=== PATIENT | male | born 1950 | race Caucasian/White ===

== ENCOUNTER 2018-07-11 12:28 | Emergency (ER) | payer MEDICARE, OTHER ==
[2018-07-11 13:25] LABS: BASO % 0.2 % (0.0-1.0); EOS % 0.1 % (0.0-3.0); HEMOGLOBIN 12.3 g/dl (13.5-17.5); IMMATURE GRANULOCYTE % 0.3 % (0-3.0); LYMPH # 0.4 10^3/uL (1.5-4.5); LYMPH % 4.6 % (24.0-44.0); MEAN CORPUSCULAR HEMOGLOBIN 29.8 pg (27.0-33.0); MEAN CORPUSCULAR HGB CONC 33.2 g/dl (32.0-36.5); MEAN CORPUSCULAR VOLUME 89.6 fl (80.0-96.0); MONO # 0.6 10^3/uL (0.0-0.8); MONO % 6.7 % (0.0-5.0); NEUTROPHILS # 8.2 10^3/uL (1.8-7.7); NEUTROPHILS % 88.1 % (36.0-66.0); PLATELET COUNT, AUTOMATED 194 10^3/uL (150-450); RED BLOOD COUNT 4.13 10^6/uL (4.30-6.10); RED CELL DISTRIBUTION WIDTH 13.8 % (11.5-14.5); WHITE BLOOD COUNT 9.3 10^3/uL (4.0-10.0)
[2018-07-11] MEDS: NS 1,000 ML IV (13:41)
[2018-07-11] MEDS: ACETAMINOPHEN 325 MG TAB PO (13:41)
[2018-07-11 14:00] LABS: ANION GAP 10 MEQ/L (8-16); BLOOD UREA NITROGEN 18 MG/DL (7-18); CALCIUM LEVEL 8.4 MG/DL (8.8-10.2); CARBON DIOXIDE LEVEL 28 MEQ/L (21-32); CHLORIDE LEVEL 104 MEQ/L (98-107); CREATININE FOR GFR 1.13 MG/DL (0.70-1.30); GLOMERULAR FILTRATION RATE > 60.0 (>49); GLUCOSE, FASTING 147 MG/DL (70-100); POTASSIUM SERUM 3.7 MEQ/L (3.5-5.1); SODIUM LEVEL 142 MEQ/L (136-145)
[2018-07-11 14:23] LABS: KETONE, URINE AUTO RFX NEGATIVE (NEGATIVE); MUCUS, URINE RFX SMALL (NEGATIVE); RBC, URINE AUTO RFX 6 /HPF (0-3); SPECIFIC GRAVITY UR AUTO RFX 1.019 (1.002-1.035); SQUAM EPITHELIAL CELL UR AURFX 2 /HPF (0-6)
[2018-07-11 14:25] LABS: LEUKOCYTE ESTERASE UR AUTO RFX 2+ (NEGATIVE); NITRITE, URINE AUTO RFX POSITIVE (NEGATIVE); WBC, URINE AUTO RFX 72 /HPF (0-3)
[2018-07-11] MEDS: cefTRIAXone SOD 1 GM in D5W MINI-BAG PLUS 50 ML IV (14:40)
[2018-07-11] MEDS: IBUPROFEN 600 MG TAB PO (15:03)
== END 2018-07-11 16:17 | disposition home or self-care (01) ==
LOC: M ED 12:28
DX: N39.0 Urinary tract infection, site not specified (principal); I10 Essential (primary) hypertension; E78.5 Hyperlipidemia, unspecified; Z79.82 Long term (current) use of aspirin; Z79.899 Other long term (current) drug therapy
CPT/HCPCS: J0696

== ENCOUNTER → 2018-10-01 | Outpatient (REF) | payer MEDICARE, OTHER ==
[~2018-10-01] MED LIST: ASPI81TA85 PO; CHLO125TA; CIPR250T3 PO; GLUC500C98 PO; LOSA-4; METF500T13; SIMV20TA2; ZYLO300T6
== END ==
LOC: M LAB REF 16:42
PROVIDERS: ATTEND Physician Assistant
DX: R35.0 Frequency of micturition (principal)

== ENCOUNTER → 2018-11-20 | Outpatient (CLI) | payer MEDICARE, OTHER ==
[~2018-11-20] MED LIST changes: -LOSA-4; +LOSA100T50
--- NOTE | 2018-11-20 15:29 | ECGEPIP ---
Stationary ECG Study [facility] Test Date: 2018-11-20 Pat Name: ELAINE CARVAJAL Department: Room: - Gender: M Binding Dyer: : 1950 Requested By: Robel Valdez Order Number: [id number] Reading MD: Kamila Berger Measurements Intervals Elora Rate: 84 P: 65 HI: 219 QRS: 34 QRSD: 94 T: 52 QT: 349 QTc: 414 Interpretive Statements SINUS RHYTHM WITH FIRST DEGREE AV BLOCK NONSPECIFIC T-WAVE ABNORMALITY no prior Electronically Signed On 11-20-2018 15:29:00 EST by Kamila Berger
[2018-11-20 15:42] LABS: CALCIUM LEVEL 8.9 MG/DL (8.8-10.2); CREATININE FOR GFR 1.3 MG/DL (0.70-1.30); GLOMERULAR FILTRATION RATE 58.8 (>49); POTASSIUM SERUM 3.7 MEQ/L (3.5-5.1)
--- NOTE | 2018-11-20 15:58 | REP ---
PA and lateral chest: Comparison is 08/15/2008. The lung krause are clear. The cardiac size is normal. The wood, mediastinum, and skeletal structures are unremarkable. There is a cervical spine stabilization plate, not present previously. The Impression: Negative PA and lateral chest. There is no interval change except for interval placement of a cervical spine stabilization plate. Electronically Signed by Toro Ayon MD 11/20/2018 03:50 P
== END ==
LOC: M LAB 14:31
PROVIDERS: ATTEND Orthopaedic Surgery
DX: Z01.818 Encounter for other preprocedural examination (principal); M48.02 Spinal stenosis, cervical region; E11.9 Type 2 diabetes mellitus without complications

== ENCOUNTER → 2018-12-11 | Outpatient (CLI) | payer MEDICARE, OTHER ==
[~2018-12-11] MED LIST changes: -CHLO125TA; +CHLO125TA PO; +GABA-845 PO; +GLIM2TAB PO; -LOSA100T50; +LOSA100T50 PO; -SIMV20TA2; +SIMV20TA2 PO; -ZYLO300T6; +ZYLO300T6 PO
--- NOTE | 2018-12-15 15:13 | SLEEPCENT ---
DATE OF PROCEDURE: 12/11/2018 ORDERING PROVIDER: Dr. Gerald Denise. INTERPRETATION: Nocturnal polysomnography was performed for evaluation of sleep physiology in this patient with a history of excessive somnolence and nonrestorative sleep. 8 hours and 2 minutes of data were reviewed. There were 387 minutes of sleep identified. Sleep latency was prolonged at 69.5 minutes. REM latency was short at 60 minutes. Sleep architecture was good with four REM cycles. Overall sleep efficiency 81%. The patient's electrocardiogram showed a sinus rhythm with an average heart rate of 63 beats per minute. EEG showed normal waveforms for awake and sleep. There were 115 respiratory events identified of 10 seconds in duration or greater for an apnea-hypopnea index of 17.8. The events were primarily obstructive not exclusive to sleep stage nor body posture. Arousals from respiratory events occurred 4.7 times per hour and oxygen desaturations were seen in the 80s. There was minimal limb activity and remaining measures of sleep physiology were normal. IMPRESSION: Obstructive sleep apnea syndrome (G47.33). Apnea-hypopnea 17.8. RECOMMENDATION: The patient should be encouraged to return to the sleep disorder center for pressure therapy. In the interim alcohol and sedative avoidance should be practiced and caution exercised during the operation of motor vehicles.
== END ==
LOC: M SLEEP 19:42
PROVIDERS: ATTEND Nurse Practitioner Family
DX: G47.33 Obstructive sleep apnea (adult) (pediatric) (principal)

== ENCOUNTER 2018-12-14 07:30 | Inpatient (IN) | payer MEDICARE, OTHER ==
--- NOTE | 2018-12-04 15:12 | HPE ---
DATE OF ANTICIPATED ADMISSION: 12/22/2018 Mr. Hernandez is a pleasant 67-year-old male with continuing cervicalgia and symptomatic cervical stenosis with prior history of anterior cervical decompression fusion. He has developed adjacent segment syndrome and, therefore, consented to proceed with posterior cervical decompression fusion per Dr. Robel Rivas. ALLERGIES: None known to drugs. MEDICATIONS: - losartan 100 mg - Bactroban 2% ointment - nitrofurantoin macrocrystal monohydrate (Macrobid 100 mg capsule) - simvastatin, Zocor 20 mg - glimepiride 1 mg tablet - gabapentin 300 mg one capsule by mouth two times a day - chlorthalidone 25 mg tablet - allopurinol MEDICAL PROBLEM LIST INCLUDES: Cervicalgia. Cervical stenosis with development of adjacent segment syndrome. Gout. Diabetes mellitus. Hypercholesteremia. PAST SURGICAL HISTORY: Includes; Anterior cervical decompression fusion. Laminectomy. Appendectomy. FAMILY HISTORY: Positive for cancer, heart disease, arthritis, hypercholesteremia, diabetes. SOCIAL HISTORY: He has never smoked. He rarely consumes alcohol. REVIEW OF SYSTEMS: Denies chest pain, shortness of breath, dyspnea on exertion, fever, chills, malaise, upper respiratory or urinary tract symptoms. PHYSICAL EXAMINATION: Blood pressure 122/76. Pulse 67. Temperature 98.7. Height 74. Weight 285. Body mass index (BMI) 36.6. Respirations 16. He is a pleasant, well-developed, well-nourished, obese male in no acute distress. Alert and oriented times three. Mood and affect are appropriate. He ambulates, slow steady with cane in hand in a forward flexed posture about the cervical spine. Normocephalic. Neck: Supple. Negative jugular venous distention (JVD) or bruits. Chest: Regular rate and rhythm. Lungs: Clear to auscultation. Bowel sounds times two, soft, nontender. Upper extremities are supple, soft, nontender, neurovascularly intact with no signs of infection or compartment syndrome. Neck range of motion is with stiffness, discomfort, in a forward flexed posture. Labs, reviewed as acquired on 11/20/2018. Blood type O positive, antibody (AB) screen negative. Glucose fasting elevated at 132, BUN 24, anion gap 7. Additional labs through Dr. Chung's office showed glucose serum 138, his BUN was actually normalized at 18, HDL low, hemoglobin A1c 6.5, vitamin D 221.4. Uric acid was within normal limits. EKG, service date 11/20/2018; sinus rhythm with first-degree AV block read by Dr. Robles. Chest x-ray, service date 11/20/2018, [facility], shows negative PA and lateral chest. No interval change, except for interval placement of cervical spine stabilization plate, as read by Dr. Ayon. 1. Symptomatic cervical stenosis with adjacent segment syndrome. 2. Patient consented for a posterior cervical decompression fusion. 3. Medical optimization per Dr. Chung. 4. Patient did complete second opinion with Dr. Almonte, who concurred with the above recommendations. 5. Sequential compression devices (SCDs) and thromboembolism deterrents (TEDs) in operating room (OR). 6. Postoperative [place] J collar. 7. Consent was updated today. 8. Patient is concerned about postoperative gouty flare-up, which we will keep a cautious eye on. MTDD
[~2018-12-14] VITALS: Ht 188 cm; Wt 132.0 kg
[2018-12-25] MEDS ORDERED: PROPOFOL 200 MG/20 ML VIAL As Ordered ONE ×3 (11:04→14:55)
[2018-12-25] MEDS ORDERED: LIDOCAINE 2% INJ 100 MG/5 ML SDV (FOR ANES.) As Ordered ONE (11:05)
[2018-12-25] MEDS ORDERED: ONDANSETRON 4MG/2ML VIAL (J2405) As Ordered ONE ×2 (11:07→20:18)
[2018-12-25] MEDS ORDERED: dexameTHASONE 4 MG/ML 1ML VIAL (J1100) As Ordered ONE (11:07)
[2018-12-25] MEDS ORDERED: fentaNYL 100 MCG/2 ML INJECTION (J3010) As Ordered ONE ×2 (11:09→20:17)
[2018-12-25] MEDS ORDERED: MIDAZOLAM INJ 2 MG/2 ML VIAL (J2250) As Ordered ONE (11:09)
[2018-12-25] MEDS ORDERED: REMIFENTANIL 1MG 3ML VIAL As Ordered ONE ×3 (11:10→18:10)
[2018-12-25] MEDS ORDERED: LIDOCAINE W/EPINEPHRINE 1% 20ML VIAL As Ordered ONE (12:37)
[2018-12-25] MEDS ORDERED: THROMBIN SOLN 20,000 UNITS KIT As Ordered ONE (12:37)
[2018-12-25] MEDS ORDERED: BUPIVACAINE/EPIN 0.25% 30 ML VIAL As Ordered ONE (12:37)
[2018-12-25] MEDS ORDERED: BACITRACIN PWD 50,000 UNITS VIAL As Ordered ONE (12:38)
[2018-12-25] MEDS ORDERED: methylPREDNISolone 500 MG VIAL (J2930) As Ordered ONE (12:38)
[2018-12-25] MEDS ORDERED: MUPI2OI (12:44)
[2018-12-25] MEDS ORDERED: D5W/LR 1,000 ML IV SCH (13:00)
[2018-12-25] MEDS ORDERED: methylPREDNISolone INJ 125 MG/2 ML VIAL (J2930) IV ONE (13:00)
[2018-12-25] MEDS ORDERED: PERCOCET 5MG/325MG TAB PO ONE (13:00)
[2018-12-25] MEDS ORDERED: GABAPENTIN 300 MG CAP PO ONE (13:00)
[2018-12-25] MEDS ORDERED: ceFAZolin 2 GM/D5W 50 ML IV BAG (J0690 PER 500MG) As Ordered ONE ×2 (13:27→16:53)
[2018-12-25] MEDS ORDERED: KETAMINE HCL 200 MG/20 ML VIAL As Ordered ONE (14:28)
[2018-12-25] MEDS ORDERED: PROPOFOL 1,000 MG/100 ML VIAL As Ordered ONE ×2 (14:56→14:59)
[2018-12-25] MEDS ORDERED: EPINEPHrine INJ 1 MG/ML 1ML AMP As Ordered ONE (16:38)
[2018-12-25] MEDS ORDERED: TRANEXAMIC ACID 100 MG/ML 10ML VIAL As Ordered ONE (16:38)
[2018-12-25] MEDS ORDERED: ROCURONIUM BROMIDE 50 MG/5 ML VIAL As Ordered ONE (16:44)
[2018-12-25] MEDS ORDERED: VANCOMYCIN HCL 500 MG/10 ML VIAL (J3370) As Ordered ONE (18:45)
[2018-12-25] MEDS ORDERED: BUPIVACAINE HCL 0.5% 10 ML VIAL As Ordered ONE (19:03)
[2018-12-25] MEDS ORDERED: BUPIVACAINE LIPOSOME/PF 1.3% 20ML VIAL (13.3MG/ML)(EXPAREL)(C9290 PER1MG) As Ordered ONE (19:03)
[2018-12-25] MEDS ORDERED: HYDROmorphone HCL 2 MG/ML 1ML VIAL (J1170) As Ordered ONE (19:23)
[2018-12-25] MEDS ORDERED: SUGAMMADEX SODIUM 500 MG/5 ML VIAL (BRIDION) As Ordered ONE (19:27)
[2018-12-25] MEDS ORDERED: LR 1,000 ML IV SCH (20:30)
[2018-12-25] MEDS ORDERED: MORPHINE 10 MG/ML 1ML VIAL (J2270) IV PRN (20:30)
[2018-12-25] MEDS ORDERED: PERCOCET 5MG/325MG TAB PO PRN ×2 (20:30)
[2018-12-25] MEDS ORDERED: ONDANSETRON 4MG/2ML VIAL (J2405) IV PRN (20:30)
[2018-12-25] MEDS ORDERED: fentaNYL 100 MCG/2 ML INJECTION (J3010) IV PRN (20:30)
[2018-12-25] MEDS ORDERED: CYCLOBENZAPRINE 10 MG TAB PO PRN (20:30)
[2018-12-25] MEDS ORDERED: HYDROMORPHONE HCL 0.5 MG/ 0.5 ML SYRINGE (J1170 PER 1) IV PRN (20:45)
[2018-12-25] MEDS ORDERED: ACETAMINOPHEN TAB 650MG DOSE (2X325MG) PO PRN (20:45)
[2018-12-25] MEDS: HumaLOG INSULIN (NovoLOG) PER UNIT SC SCH (21:00)
[2018-12-25 22:45] VITALS: BP 136/74
--- NOTE | 2018-12-25 23:07 | REP ---
PORTABLE INTRAOPERATIVE LATERAL VIEWS OF THE CERVICAL SPINE: Four intraoperative views of cervical spine performed in the lateral projection. The first image shows down to the C4-5 disc level with an anterior metallic plate and screw at the C4 level. The second image shows a metallic probe posteriorly which appears to project in the region of the posterior margin of the C5-6 disc level. The third image shows a metallic probe posteriorly with its tip at the C3-4 disc level. The fourth image shows a new metallic whitney and screws extending into the facets of C3 through C6. C2 through C5 vertebral bodies are well aligned. Electronically Signed by Toro Jimenez MD 12/26/2018 06:48 P
[2018-12-25 23:15] VITALS: BP 150/75
[2018-12-25] MEDS: LOSARTAN 50 MG TAB PO SCH (23:46)
[2018-12-25] MEDS: SIMVASTATIN 20 MG TAB PO SCH (23:46)
[2018-12-25] MEDS: GABAPENTIN 300 MG CAP PO SCH (23:46)
[2018-12-25] MEDS: D5W/LR 1,000 ML IV SCH (23:56)
[2018-12-26] VITALS (11 sets, daily range): BP systolic 119–131; BP diastolic 55–68; O2SAT 94
[2018-12-26] MEDS: ceFAZolin SOD 1 GM in D5W MINI-BAG PLUS 50 ML IV SCH ×2 (01:10→06:59)
[2018-12-26] MEDS: D5W/LR 1,000 ML IV SCH ×2 (06:59→15:29)
[2018-12-26] MEDS: GLIMEPIRIDE 1 MG TABLET PO SCH (07:52)
[2018-12-26] MEDS: HumaLOG INSULIN (NovoLOG) PER UNIT SC SCH ×4 (07:53→20:13)
[2018-12-26] MEDS: GABAPENTIN 300 MG CAP PO SCH ×2 (09:51→20:22)
[2018-12-26] MEDS: CHLORTHALIDONE 25 MG TAB PO SCH (09:51)
[2018-12-26] MEDS: MOM 30ML SUSPENSION UDC PO SCH (09:52)
[2018-12-26] MEDS: ALLOPURINOL 300 MG TAB PO SCH (09:52)
[2018-12-26] MEDS: MIRALAX *UNIT DOSE* 17GM PACKET PO SCH (09:53)
[2018-12-26] MEDS: METAMUCIL (PSYLLIUM) PACKET PO SCH (09:53)
[2018-12-26] MEDS: PERCOCET 5MG/325MG TAB PO PRN (19:04)
[2018-12-26] MEDS: SIMVASTATIN 20 MG TAB PO SCH (20:22)
[2018-12-26] MEDS: LOSARTAN 50 MG TAB PO SCH (20:22)
[2018-12-27] MEDS: D5W/LR 1,000 ML IV SCH (02:12)
[2018-12-27 06:00] VITALS: BP 132/75
[2018-12-27] MEDS: MOM 30ML SUSPENSION UDC PO SCH (08:22)
[2018-12-27] MEDS: GLIMEPIRIDE 1 MG TABLET PO SCH (08:23)
[2018-12-27] MEDS: MIRALAX *UNIT DOSE* 17GM PACKET PO SCH (08:23)
[2018-12-27] MEDS: METAMUCIL (PSYLLIUM) PACKET PO SCH (08:23)
[2018-12-27] MEDS: GABAPENTIN 300 MG CAP PO SCH (08:23)
[2018-12-27] MEDS: CHLORTHALIDONE 25 MG TAB PO SCH (08:24)
[2018-12-27] MEDS: ALLOPURINOL 300 MG TAB PO SCH (08:24)
[2018-12-27] MEDS: HumaLOG INSULIN (NovoLOG) PER UNIT SC SCH (08:26)
[2018-12-27] MEDS ORDERED: PERC5TAB12 PO (08:27)
[2018-12-27] MEDS: PERCOCET 5MG/325MG TAB PO PRN (11:31)
[2018-12-27] MEDS ORDERED: PERCOCET 5MG/325MG TAB PO ONE (12:00)
--- NOTE | 2018-12-28 14:59 | RO ---
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 Patient has a history of previous anterior cervical fusion surgery a number of years ago. PROCEDURE PERFORMED: A C3 bilateral laminectomy for decompression of the spinal cord/thecal sac and nerve roots. A C4 laminectomy additional level. C5 laminectomy additional level. C3-4 posterior cervical arthrodesis, C4-5 posterior cervical arthrodesis, C5-6 posterior cervical arthrodesis, C3, 4, 5, 6 posterior segmental instrumentation, harvest and placement of local autograft for spine surgery, application and removal of Burrows tongs and appropriate positioning. Also neuromonitoring was implemented throughout the course of this procedure. SURGEON: Robel Rivas MD PSYCHIATRIC SOCIAL WORKER: HILLARY Brink ANESTHESIA: General. ESTIMATED BLOOD LOSS: 200 mL replaced with crystalloid. COMPLICATIONS: No complications. INDICATIONS: Patient with progressive gait disorder, cervical myelopathy with symptoms affecting the upper and lower extremities. MRI evidence of severe cervical spinal stenosis at C3-4 and moderate severe cervical spinal stenosis C4-5, previous anterior cervical surgery. Consent reviewed in detail with the patient and involved a nanci discussion of the pathology involved, the procedures proposed, alternatives including doing nothing, risks including but not limited to pain, failure, infection, bleeding, blood loss, incomplete relief of symptoms, paralysis, , need for more surgery and other issues. The patient agreed to proceed. COMPONENTS USED: Include the DePuy MOUNTAINEER system, 12 mm screws utilized at C4, C5 and C6 bilaterally, 14 mm screws utilized at C3, and a 60 mm connecting whitney bilaterally. OPERATIVE COURSE: Identified in the holding area, site and side verified. Brought to the operating room. General endotracheal anesthesia was administered, neuromonitoring was implemented. We verified neuromonitoring function prior to positioning. Next, his head was prepped with Betadine and I applied the Burrows tongs to 2.75 bars pressure. I inspected the Burrows tongs and once I was comfortable with the position of the Burrows tongs, we began positioning. I controlled the patient's cervical spine and head while operating room staff including Mr. Ibanez assisted with positioning the body. He was log-rolled to the operating table in the prone position over blanket rolls. Next, while I held the head in position, Mr. Ibanez secured the Burrows tongs to the table and then we proceeded to tape the shoulders and arms of the sides and make final adjustments to the table and the Burrows tongs for adequate positioning. Next, once this was accomplished. The patient was sterilely prepped and draped in the usual fashion. A cross-table lateral x-ray had been taken to verify good alignment after positioning and the neuromonitoring and had again been accomplished after positioning and no changes were appreciated. Next, once he was sterilely prepped and draped we began the procedure. I utilized 3.5 loupe magnification as well as a headlamp. Mr. Ibanez stood on the opposite side of the table. The incision was made in the midline posterior cervical spine, developed down the nuchal ligaments to the posterior spinous processes. He has some calcification within the nuchal ligament and that was enucleated. The dissection continued exposing the spinous process and lamina. We had begun on the patient's left side. Next, once I could place a probe under the lamina, we did drill a divot in the lamina at the C4-5 level, obtained a cross-table lateral and developed dissection superiorly through the inferior lamina of C3 and spinous process taking care here to minimize sacrifice of soft tissue/muscle. Next, once that C3 lamina was adequately exposed and the exposure ran from C3-C6, we accomplished a similar dissection on the contralateral side. Bipolar cautery utilized for hemostasis. Next, SHADOW-LINE retractors were applied. This patient's body mass index was high with a weight of 280 pounds. We utilized 65 mm blades on the SHADOW-LINE retractor. Next, once this was accomplished I removed spinous process of the C5-6, 4 and inferior 3. Using Leksell, these bones was retained for bone graft. Next, once that was accomplished, I utilized the high-speed bur to complete a laminectomy. I first began on the patient's right side at the medial border of the facette lamina junction. We turned to the contralateral side and again utilized the high-speed bur to implement a trough from C3-C6, then I was able to elevate the lamina with #1 Kerrison's cutting ligamentum flavum. Next, the lamina was removed. The thecal sac was noted to drift back significantly. No neuromonitoring changes were appreciated. Kerrison's were then utilized to decompress further into the superior lamina of 3, undercutting it and decompressing from the deep side of the C3 lamina. Similarly, superior lamina of C6 was also further decompressed. Next, once this was accomplished we inspected the wound. No active bleeding. We instilled some TXA solution as a hemostatic agent, nonetheless. We allowed that stand for approximately 1-1/2 minutes. We also irrigated thoroughly with approximately 500 mL of warm saline solution. We irrigated with bacitracin solution. Next, we also injected a total of about 50 mL of Exparel Marcaine saline solution around the posterior septal condyles, the nuchal ligament and fascial attachments subcuticular area bilaterally for perioperative pain control. Next, once this was all accomplished. retractors were removed. The wound was closed with interrupted stitch at posterior cervical fascia and nuchal ligament followed by deep dermal stitches, followed by application of the Prineo dressing. Next, once this was accomplished, Mr. Ibanez and I began the process of disassembling the Burrows tongs and moving the patient. Again, I secured the patient's head, Mr. Ibanez freed the Burrows tongs, and then we directed moving the patient back the supine position, rolling him onto the hospital bed. Here I removed the Burrows tongs. The Burrows tongs pin sites were intact with no drainage. Next, at this point anesthesia was able to extubate the patient. There was no changes in the neuromonitoring with the flip. Next, the patient was able to be extubated, moved to recovery room in good condition, was noted to move all four extremities. For further details please refer to medical record.
== END 2018-12-27 11:40 | disposition home or self-care (01) | DRG 473 ==
LOC: M OR 12-25 10:53 → M MS5PR 12-25 22:40
PROVIDERS: ADMIT Orthopaedic Surgery; ATTEND Orthopaedic Surgery
PROC: 0RB30ZZ Excision of Cervical Vertebral Disc, Open Approach (ICD-10-PCS; 2018-12-25)
PROC: 0RG10J1 Fusion of Cervical Vertebral Joint with Synthetic Substitute, Posterior Approach, Posterior Column, Open Approach (ICD-10-PCS; principal; 2018-12-25 13:00)
DX: M50.01 Cervical disc disorder with myelopathy, high cervical region (principal); M50.021 Cervical disc disorder at C4-C5 level with myelopathy; M54.2 Cervicalgia; T85.858A Stenosis due to other internal prosthetic devices, implants and grafts, initial encounter; E11.69 Type 2 diabetes mellitus with other specified complication; Z79.899 Other long term (current) drug therapy; M10.9 Gout, unspecified; E78.2 Mixed hyperlipidemia; E55.9 Vitamin D deficiency, unspecified

== ENCOUNTER → 2019-03-12 | Outpatient (REF) | payer MEDICARE, OTHER ==
[~2019-03-12] MED LIST changes: +MUPI2OI; +PERC5TAB12 PO
[2019-03-12 19:18] LABS: APPEARANCE, URINE CLEAR (CLEAR); BACTERIA, URINE AUTO NEGATIVE (NEGATIVE); BILIRUBIN, URINE AUTO NEGATIVE (NEGATIVE); BLOOD, URINE BLOOD NEGATIVE (NEGATIVE); COLOR, URINE YELLOW (YELLOW); GLUCOSE, URINE (UA) AUTO NEGATIVE (NEGATIVE); KETONE, URINE AUTO NEGATIVE (NEGATIVE); LEUKOCYTE ESTERASE, URINE AUTO NEGATIVE (NEGATIVE); MUCUS, URINE SMALL (NEGATIVE); NITRITE, URINE AUTO NEGATIVE (NEGATIVE); PROTEIN, URINE AUTO NEGATIVE (NEGATIVE); RBC, URINE AUTO 0 /HPF (0-3); SPECIFIC GRAVITY URINE AUTO 1.011 (1.002-1.035); SQUAMOUS EPITHELIAL CELL UR AU 0 /HPF (0-6); UROBILINOGEN, URINE AUTO 0.2 mg/dL (0.0-2.0); WBC, URINE AUTO 0 /HPF (0-3)
== END ==
LOC: M SMT 16:07
PROVIDERS: ATTEND Nurse Practitioner Family
DX: R35.0 Frequency of micturition (principal)

== ENCOUNTER → 2019-04-02 | Outpatient (REF) | payer MEDICARE, OTHER | LOC: M LABSMT 09:31 | PROVIDERS: ATTEND Nurse Practitioner Family | DX: R35.0 Frequency of micturition (principal); Z12.5 Encounter for screening for malignant neoplasm of prostate ==

== ENCOUNTER → 2019-04-02 | Outpatient (REF) | payer MEDICARE, OTHER ==
[2019-04-02 16:42] LABS: ALBUMIN 3.8 GM/DL (3.2-5.2); ALT/SGPT 22 U/L (12-78); BILIRUBIN,TOTAL 0.5 MG/DL (0.2-1.0); BLOOD UREA NITROGEN 20 MG/DL (7-18); CALCIUM LEVEL 8.5 MG/DL (8.8-10.2); CARBON DIOXIDE LEVEL 28 MEQ/L (21-32); CHLORIDE LEVEL 105 MEQ/L (98-107); CREATININE FOR GFR 0.99 MG/DL (0.70-1.30); GLOMERULAR FILTRATION RATE > 60.0 (>49); GLUCOSE, FASTING 138 MG/DL (70-100); POTASSIUM SERUM 3.7 MEQ/L (3.5-5.1); SODIUM LEVEL 141 MEQ/L (136-145); TOTAL PROTEIN 7.8 GM/DL (6.4-8.2); URIC ACID 6.2 MG/DL (3.5-7.2)
[2019-04-02 16:49] LABS: TOTAL 25(OH) VITAMIN D 11.4 NG/ML (30.0-100.0)
[2019-04-02 16:59] LABS: HEMOGLOBIN A1c 6.8 %
== END ==
LOC: M LABDRAWC 15:54
PROVIDERS: ATTEND Physician Assistant
DX: E11.69 Type 2 diabetes mellitus with other specified complication (principal); M10.9 Gout, unspecified; E55.9 Vitamin D deficiency, unspecified; R35.0 Frequency of micturition; Z12.5 Encounter for screening for malignant neoplasm of prostate
CPT/HCPCS: 80053; 82306; 83036; 84550; G0103

== ENCOUNTER → 2019-04-05 | Outpatient (REF) | payer MEDICARE, OTHER ==
[2019-04-05 21:13] LABS: CREATININE, URINE 74.5 MG/DL; MALB URINE SIEMENS 5.9 MG/L; MAU/CREAT RATIO 7.9 MCG/MG (0.0-30.0)
== END ==
LOC: M LAB REF 16:36
PROVIDERS: ATTEND Physician Assistant
DX: E11.69 Type 2 diabetes mellitus with other specified complication (principal); M10.9 Gout, unspecified; E55.9 Vitamin D deficiency, unspecified

== ENCOUNTER → 2019-04-05 | Outpatient (REF) | payer MEDICARE, OTHER ==
[2019-04-05 21:04] LABS: APPEARANCE, URINE HAZY (CLEAR); BACTERIA, URINE AUTO NEGATIVE (NEGATIVE); BILIRUBIN, URINE AUTO NEGATIVE (NEGATIVE); BLOOD, URINE BLOOD NEGATIVE (NEGATIVE); COLOR, URINE YELLOW (YELLOW); GLUCOSE, URINE (UA) AUTO NEGATIVE (NEGATIVE); KETONE, URINE AUTO NEGATIVE (NEGATIVE); LEUKOCYTE ESTERASE, URINE AUTO NEGATIVE (NEGATIVE); MUCUS, URINE SMALL (NEGATIVE); NITRITE, URINE AUTO NEGATIVE (NEGATIVE); PROTEIN, URINE AUTO NEGATIVE (NEGATIVE); RBC, URINE AUTO 0 /HPF (0-3); SPECIFIC GRAVITY URINE AUTO 1.011 (1.002-1.035); SQUAMOUS EPITHELIAL CELL UR AU 0 /HPF (0-6); UROBILINOGEN, URINE AUTO 0.2 mg/dL (0.0-2.0); WBC, URINE AUTO 1 /HPF (0-3)
== END ==
LOC: M SMT 16:38
PROVIDERS: ATTEND Nurse Practitioner Family
DX: R35.0 Frequency of micturition (principal); Z12.5 Encounter for screening for malignant neoplasm of prostate

== ENCOUNTER → 2020-03-07 | Outpatient (REF) | payer MEDICARE, OTHER ==
[~2020-03-07] MED LIST changes: -GLIM2TAB PO; +GLIM2TAB4 PO; -SIMV20TA2 PO; +SIMV20TA22 PO
[2020-03-07 12:41] LABS: HEMOGLOBIN A1c 6.9 %
[2020-03-07 12:49] LABS: ALT/SGPT 33 U/L (12-78); BILIRUBIN,TOTAL 0.6 MG/DL (0.2-1.0); BLOOD UREA NITROGEN 18 MG/DL (7-18); CALCIUM LEVEL 8.7 MG/DL (8.8-10.2); CARBON DIOXIDE LEVEL 29 MEQ/L (21-32); CHLORIDE LEVEL 107 MEQ/L (98-107); CHOLESTEROL LEVEL 118 MG/DL (<200); CHOLESTEROL RISK RATIO 4.214 (<5); GLOMERULAR FILTRATION RATE > 60.0 (>49); GLUCOSE, FASTING 130 MG/DL (70-100); HDL CHOLESTEROL 28 MG/DL (>40); LDL CHOLESTEROL 56 MG/DL (<100); NON-HDL-C 90 MG/DL; POTASSIUM SERUM 3.8 MEQ/L (3.5-5.1); SODIUM LEVEL 142 MEQ/L (136-145); TOTAL PROTEIN 7.5 GM/DL (6.4-8.2); TRIGLYCERIDES LEVEL 170 MG/DL (<150); URIC ACID 6.4 MG/DL (3.5-7.2)
== END ==
LOC: M LABDRAWC 11:12
PROVIDERS: ATTEND Physician Assistant
DX: E11.69 Type 2 diabetes mellitus with other specified complication (principal); E78.2 Mixed hyperlipidemia; M10.9 Gout, unspecified; E55.9 Vitamin D deficiency, unspecified

== ENCOUNTER 2020-05-15 07:00 | Inpatient (IN) | payer MEDICARE, OTHER ==
[~2020-05-15 07:00] MED LIST changes: -ASPI81TA85 PO; +ASPI81TA86 PO; +BACITRACIN PWD 50,000 UNITS VIAL As Ordered ONE; +BUPIVACAINE HCL 0.5% 10ML VIAL As Ordered ONE; +BUPIVACAINE LIPOSOME/PF 1.3% 20ML VIAL (13.3MG/ML)(EXPAREL)(C9290 PER1MG) As Ordered ONE; +BUPIVACAINE/EPIN 0.25% 30 ML VIAL As Ordered ONE; +CelecoXIB (CeleBREX) 100 MG CAP As Ordered ONE; +CelecoXIB (CeleBREX) 100 MG CAP ONE; +GABAPENTIN 300 MG CAP As Ordered ONE; +GABAPENTIN 300 MG CAP ONE; +PERCOCET 5MG/325MG TAB As Ordered ONE; +PERCOCET 5MG/325MG TAB ONE; +THROMBIN SOLN 20,000 UNITS KIT As Ordered ONE; +ceFAZolin 2 GM/D5W 50 ML IV BAG (J0690 PER 500MG) As Ordered ONE; +ceFAZolin 2 GM/D5W 50 ML IV BAG (J0690 PER 500MG) ONE
[2020-05-15] MEDS ORDERED: MIDAZOLAM INJ 2MG/2ML VIAL (J2250 PER 1MG) As Ordered ONE (08:18)
[2020-05-15] MEDS ORDERED: ROCURONIUM BROMIDE 50 MG/5 ML VIAL As Ordered ONE (08:18)
[2020-05-15] MEDS ORDERED: METOCLOPRAMIDE INJ 10MG/2ML VIAL (J2765 PER 1) As Ordered ONE (08:18)
[2020-05-15] MEDS ORDERED: LIDOCAINE 2% 100MG/5ML SDV (FOR ANES.) As Ordered ONE (08:18)
[2020-05-15] MEDS ORDERED: SUGAMMADEX SODIUM 500 MG/5 ML VIAL (BRIDION) As Ordered ONE (08:18)
[2020-05-15] MEDS ORDERED: dexameTHASONE 4 MG/ML 1ML VIAL (J1100 PER 1MG) As Ordered ONE (08:18)
[2020-05-15] MEDS ORDERED: LIDOCAINE 5% OINT 30 GM As Ordered ONE (08:18)
[2020-05-15] MEDS ORDERED: propofoL 200 MG/20 ML VIAL As Ordered ONE (08:18)
[2020-05-15] MEDS ORDERED: ONDANSETRON 4MG/2ML VIAL As Ordered ONE (08:18)
[2020-05-15] MEDS ORDERED: fentaNYL 250 MCG/5 ML INJECTION (J3010) As Ordered ONE (08:18)
[2020-05-15] MEDS ORDERED: DESFLURANE 240 ML INHALANT As Ordered ONE ×2 (08:18→08:21)
[2020-05-15] MEDS ORDERED: LACRILUBE (AKWA TEARS) OPHTH OINT 3.5 GM As Ordered ONE (08:19)
[2020-05-15] MEDS ORDERED: PHENYLephrine HCL 500 MCG/5 ML (100MCG/ML) SYRINGE (J2370) As Ordered ONE (08:19)
[2020-05-15] MEDS ORDERED: ePHEDrine SULFATE 25 MG/5 ML(5MG/ML) SYRINGE As Ordered ONE ×2 (08:19→11:22)
[2020-05-15] MEDS ORDERED: SEVOFLURANE INHAL SOLN 250 ML BTL As Ordered ONE (08:23)
[2020-05-15] MEDS ORDERED: ceFAZolin 2 GM/D5W 50 ML IV BAG (J0690 PER 500MG) ONE (15:47)
[2020-05-15] MEDS ORDERED: MULTIVITAMINS/MINERALS THERAP 1 TAB ONE (15:47)
[2020-05-15] MEDS ORDERED: PERCOCET 5MG/325MG TAB ONE (18:27)
[2020-05-15] MEDS ORDERED: TAMSULOSIN 0.4 MG CAP ONE (20:30)
[2020-05-16] MEDS ORDERED: MULTIVITAMINS/MINERALS THERAP 1 TAB ONE (07:57)
[2020-05-16] MEDS ORDERED: HumaLOG INSULIN (NovoLOG) PER UNIT ONE (07:57)
[2020-05-16] MEDS ORDERED: GLIMEPIRIDE 2 MG TAB ONE (07:57)
[2020-05-16] MEDS ORDERED: METAMUCIL (PSYLLIUM) PACKET ONE (07:57)
[2020-05-16] MEDS ORDERED: CHLORTHALIDONE 25 MG TAB ONE (07:59)
--- NOTE | 2020-06-30 13:59 | REP ---
PORTABLE CROSS-TABLE VIEW LUMBAR SPINE HISTORY: Intraoperative imaging. Report is delayed due to a malware attack on this facility. FINDINGS: Portable cross-table lateral view demonstrates an intraoperative probe at the dorsal aspect of the spinal canal at the level of the L4-5 disk. Diffuse degenerative disk disease is noted. MTDD
--- NOTE | 2020-07-13 13:02 | RO ---
DATE OF OPERATION: 05/15/2020 PREOPERATIVE DIAGNOSIS: Lumbar spinal stenosis L4-5. POSTOPERATIVE DIAGNOSIS: Lumbar spinal stenosis L4-5. PROCEDURE(S) PERFORMED: L4 right unilateral laminectomy for decompression of the thecal sac and lateral recesses bilaterally, L5 right unilateral laminectomy additional level for decompression of the thecal sac recesses bilaterally. Modifier 22 appended as this patients body mass index is 38 and his weight is 290 pounds, which necessitated use of an alternative table (the Alcides table instead of the preferred Maykel frame), additional time for positioning, as well as approximately 100% additional operating time compared with some with a body mass index lower. SURGEON: Robel Rivas M.D. JUMPBASTING CANVAS BASTER: HILLARY Rose ANESTHESIA: General endotracheal. ESTIMATED BLOOD LOSS: Less than 100 mL replaced with crystalloid. COMPLICATIONS: None. INDICATIONS FOR PROCEDURE: Symptoms consistent with neurogenic claudication and MRI evidence of severe lumbar spinal stenosis primarily at the L4-5 level, congenital and acquired. The patient elects for operative intervention. Consent reviewed in detail, including nanci discussion of the pathology involved, the procedure with both alternatives including doing nothing and risks including, but not limited to pain, failure, incomplete relief, need for additional surgery, residual symptoms, and other issues. The patient agrees to proceed with surgery. DESCRIPTION OF PROCEDURE: Identified in the holding area, site and side verified. Confirmed consent and brought to the operating room. General endotracheal anesthesia was administered and then the patient, who also has a history of multiple cervical surgeries, was very carefully positioned on the Alcides frame for exposure of the lumbar spine for laminectomy. Once he was positioned and I and the telecom coordinator were comfortable with the patients positioning, he was then sterilely prepped and draped in the usual fashion. We began the surgical procedure. I utilized 3.5 loupe magnification at the start of the procedure and a head lamp. Glenroyjoce stood on the patients left and I stood on the patients right. The incision was based on palpation of landmarks outlined with the marking pen, infiltrated with 0.25% Marcaine with epinephrine made with a 10-blade developed down through skin and subcuticular tissues to the posterior lumbar fascia. The posterior lumbar fascia was reflected off of the spinous processes of 4 and 5. Dissection continued down to the spinal lamina. A divot was drilled in the spinal lamina and a Greene Santana was placed in the divot. A cross-table lateral x-ray was then taken to verify level. Next once the level was confirmed, exposure continued exposing the lamina of 4 and 5 and then, we utilized an 85 mm Shadow-Line retractor blade to implement retraction. Next at this stage, my loupe magnification and head lamp were removed, and the operating microscope was brought in for the remainder of the procedure. This facilitated additional participation by Mr. Tomlin in the capacity of first assist looking through the left ocular side through the right oculars. Next, I utilized the high-speed bur to implement a right unilateral laminectomy beginning at L4 superiorly through the lamina of 4, through the bare area of 4, inferiorly through the bare area of 5, and further into the L5 lamina. Ligamentum flavum was removed with pituitaries, curettes, and #2 and #3 Kerrison in the midline. Next, the right L4-5 facet was protected. We removed approximately several millimeters of the medial aspect of the facet to facilitate decompression to the lateral recess, which was accomplished using a #2 Kerrison and curettes extending from L4 through the facet complex and into the lateral recess of 5. Next once this was accomplished, we dissected over the horizon undercutting the spinous processes and removed ligamentum flavum from the contralateral recess and subarticular space using curettes, as well as #2 Kerrison. Next, the exiting and traversing nerve roots were appreciated bilaterally to be significantly decompressed. We inspected for bleeding and no active bleeding. We did not appreciate any cerebrospinal fluid (CSF) leak. We irrigated with saline solution. We did inject 20 mL approximately of Exparel solution for perioperative pain control. The retractors were removed. The posterior lumbar fascia was reapproximated with interrupted stitch and the dermis with interrupted stitch followed by a Prineo dressing. The patient was then log rolled to the hospital bed, extubated, and moved to the recovery room in good condition. For further details, please refer to the medical record. SANDI
== END 2020-05-16 10:30 | disposition home or self-care (01) | DRG 517 ==
LOC: M ED 07:00 → M MS5PR 07:25
PROVIDERS: ADMIT Orthopaedic Surgery; ATTEND Orthopaedic Surgery
PROC: 0QB00ZZ Excision of Lumbar Vertebra, Open Approach (ICD-10-PCS; principal; 2020-05-15)
DX: M48.062 Spinal stenosis, lumbar region with neurogenic claudication (principal); E11.9 Type 2 diabetes mellitus without complications; I10 Essential (primary) hypertension; M19.90 Unspecified osteoarthritis, unspecified site; Z79.899 Other long term (current) drug therapy; E78.2 Mixed hyperlipidemia; M10.9 Gout, unspecified; E55.9 Vitamin D deficiency, unspecified

== ENCOUNTER → 2020-07-12 | Outpatient (REF) | payer MEDICARE, OTHER ==
[~2020-07-12] MED LIST changes: -BACITRACIN PWD 50,000 UNITS VIAL As Ordered ONE; -BUPIVACAINE HCL 0.5% 10ML VIAL As Ordered ONE; -BUPIVACAINE LIPOSOME/PF 1.3% 20ML VIAL (13.3MG/ML)(EXPAREL)(C9290 PER1MG) As Ordered ONE; -BUPIVACAINE/EPIN 0.25% 30 ML VIAL As Ordered ONE; -CelecoXIB (CeleBREX) 100 MG CAP As Ordered ONE; -CelecoXIB (CeleBREX) 100 MG CAP ONE; -GABAPENTIN 300 MG CAP As Ordered ONE; -GABAPENTIN 300 MG CAP ONE; -PERCOCET 5MG/325MG TAB As Ordered ONE; -PERCOCET 5MG/325MG TAB ONE; -THROMBIN SOLN 20,000 UNITS KIT As Ordered ONE; -ceFAZolin 2 GM/D5W 50 ML IV BAG (J0690 PER 500MG) As Ordered ONE; -ceFAZolin 2 GM/D5W 50 ML IV BAG (J0690 PER 500MG) ONE
[2020-07-12 17:27] LABS: APPEARANCE, URINE CLOUDY (CLEAR); BACTERIA, URINE AUTO 1+ (NEGATIVE); BILIRUBIN, URINE AUTO NEGATIVE (NEGATIVE); BLOOD, URINE BLOOD NEGATIVE (NEGATIVE); COLOR, URINE YELLOW (YELLOW); GLUCOSE, URINE (UA) AUTO NEGATIVE (NEGATIVE); KETONE, URINE AUTO NEGATIVE (NEGATIVE); LEUKOCYTE ESTERASE, URINE AUTO 3+ (NEGATIVE); NITRITE, URINE AUTO NEGATIVE (NEGATIVE); PROTEIN, URINE AUTO NEGATIVE (NEGATIVE); RBC, URINE AUTO 2 /HPF (0-3); SQUAMOUS EPITHELIAL CELL UR AU 0 /HPF (0-6); UROBILINOGEN, URINE AUTO 0.2 mg/dL (0.0-2.0); WBC, URINE AUTO 115 /HPF (0-3)
== END ==
LOC: M SMT 16:53
PROVIDERS: ATTEND Nurse Practitioner Family
DX: R39.15 Urgency of urination (principal)
CPT/HCPCS: 51798; 81001; 87088; 87186; G0463

== ENCOUNTER → 2020-07-14 | Outpatient (CLI) | payer MEDICARE, OTHER ==
--- NOTE | 2020-07-19 12:24 | REP ---
SCROTAL SONOGRAPHY HISTORY: Urinary tract infection. Hydrocele. COMPARISON STUDY: 07/14/2019. FINDINGS: High resolution bilateral scrotal sonography is performed. There is no evidence of intratesticular mass lesion on either side. Right testicular dimensions are 4.8 x 2.8 x 3.7 cm. Left testis measures 5.2 x 2.3 x 3.9 cm. Doppler flow is present in both testes. Resistive indices are 0.55 on the right and 0.7 on the left. There are moderate bilateral hydroceles. There is a 2-mm hyperechoic focus in the left testis consistent with a small focal calcification. There is a 0.4 cm cyst in the left epididymis. No other abnormality. IMPRESSION: Uldoa-xb-rloigpxt bilateral hydroceles again noted. Small epididymal cyst on the left. Otherwise unremarkable. [facility]
--- NOTE | 2020-07-19 12:26 | REP ---
RENAL SONOGRAPHY HISTORY: Urinary tract infection (UTI). FINDINGS: Renal cortical echogenicity pattern is normal and renal contours are smooth bilaterally. There is no evidence of hydronephrosis, cyst, mass, or calculus on either side. Right renal dimensions are 13.7 x 6.9 x 6.1 cm. The left kidney measures 12.6 x 4.5 x 6.6 cm. IMPRESSION: Normal renal sonography. [facility]
--- NOTE | 2020-07-19 12:27 | REP ---
LIMITED, PELVIC SONOGRAPHY HISTORY: Urinary tract infection. FINDINGS: Visualized bladder lowery are smooth. No bladder mass lesion is seen. Calculated prevoid bladder volume is 256 mL. Calculated postvoid bladder volume is 55 mL (21%). IMPRESSION: Mild postvoid bladder residual. Otherwise negative bladder sonography. MTDD
== END ==
LOC: M RAD 12:01
PROVIDERS: ATTEND Nurse Practitioner Family
DX: N39.0 Urinary tract infection, site not specified (principal); N43.3 Hydrocele, unspecified; N50.3 Cyst of epididymis; N50.82 Scrotal pain

== ENCOUNTER → 2020-11-06 | Outpatient (CLI) | payer MEDICARE, OTHER ==
[~2020-11-06] MED LIST changes: +ASPI81TA26 PO; +D31000TA2 PO; +FLOM0.4C39 PO; +FLON1SPR; +VITATAB73 PO
== END ==
LOC: M LABSMTC 10:58
PROVIDERS: ATTEND Anesthesiology
DX: Z01.812 Encounter for preprocedural laboratory examination (principal); Z20.822 Contact with and (suspected) exposure to COVID-19

== ENCOUNTER 2020-11-09 10:21 | Day surgery (SDC) | payer MEDICARE, OTHER ==
[~2020-11-09] VITALS: Ht 188 cm; Wt 137.0 kg
[~2020-11-09 10:21] MED LIST changes: +LIDOCAINE 2% 100MG/5ML SDV (FOR ANES.) As Ordered ONE; +NS 1,000 ML IV ONE; +propofoL 200 MG/20 ML VIAL As Ordered ONE
[2020-11-09] MEDS ORDERED: PHENYLephrine 500MCG 5ML (100MCG/ML) SYRINGE As Ordered ONE (11:43)
[2020-11-09] MEDS ORDERED: ePHEDrine SULFATE 25 MG/5 ML(5MG/ML) SYRINGE As Ordered ONE (11:50)
--- NOTE | 2020-11-09 11:59 | ROOR ---
Patient Name: Sudeep Hernandez Procedure Date: 11/09/2020 11:21 AM Date of : 1950 Age: 69 Room: [facility] Gender: Male Note Status: Finalized Procedure: Colonoscopy Indications: High risk colon cancer surveillance: Personal history of colonic polyps Providers: Jonathan Palencia Jr, MD Referring MD: JAMIN CLAROS MD Requesting Provider: Medicines: Propofol per Anesthesia Complications: No immediate complications. Procedure: Pre-Anesthesia Assessment: - Prior to the procedure, a History and Physical was performed, and patient medications and allergies were reviewed. The patient is competent. The risks and benefits of the procedure and the sedation options and risks were discussed with the patient. All questions were answered and informed consent was obtained. Patient identification and proposed procedure were verified by the physician and the nurse in the pre-procedure area and in the procedure room. Mental Status Examination: alert and oriented. Airway Examination: normal oropharyngeal airway and neck mobility. Respiratory Examination: clear to auscultation. CV Examination: normal. ASA Grade Assessment: II - A patient with mild systemic disease. After reviewing the risks and benefits, the patient was deemed in satisfactory condition to undergo the procedure. The anesthesia plan was to use moderate sedation / analgesia (conscious sedation). Immediately prior to administration of medications, the patient was re-assessed for adequacy to receive sedatives. The heart rate, respiratory rate, oxygen saturations, blood pressure, adequacy of pulmonary ventilation, and response to care were monitored throughout the procedure. The physical status of the patient was re-assessed after the procedure. The Colonoscope was introduced through the anus and advanced to the ileocecal valve. The colonoscopy was unusually difficult due to a redundant colon, significant looping and a tortuous colon. Successful completion of the procedure was aided by using manual pressure. Findings: Three polyps were found in the sigmoid colon, transverse colon and ascending colon. The polyps were small in size. These polyps were removed with a hot snare. Resection was complete, but the polyp tissue was only partially retrieved. The sigmoid colon, descending colon, transverse colon and ascending colon were significantly redundant. The sigmoid colon, descending colon, transverse colon and ascending colon revealed significantly excessive looping. Impression: - Three small polyps in the sigmoid colon, in the transverse colon and in the ascending colon, removed with a hot snare. Complete resection. Partial retrieval. - Redundant colon. - There was significant looping of the colon. Recommendation: - Discharge patient to home (ambulatory). - Repeat colonoscopy in 5 years for surveillance. Procedure Code(s): --- Professional --- 93599, Colonoscopy, flexible; with removal of tumor(s), polyp(s), or other lesion(s) by snare technique Diagnosis Code(s): --- Professional --- Z86.010, Personal history of colonic polyps K63.5, Polyp of colon Q43.8, Other specified congenital malformations of intestine CPT copyright 2019 [employer]. All rights reserved. The codes documented in this report are preliminary and upon remote coders review may be revised to meet current compliance requirements. Jonathan Palencia MD Jonathan Palencia Jr, MD 11/09/2020 11:58:24 AM Electronically signed by Jonathan Palencia Jr, MD Number of Addenda: 0 Note Initiated On: 11/09/2020 11:21 AM Estimated Blood Loss: Estimated blood loss: none.
[2020-11-09 12:20] VITALS: BP 115/65
== END 2020-11-09 12:25 | disposition home or self-care (01) ==
LOC: M OPP 10:21
PROVIDERS: ATTEND Surgery
DX: Z12.11 Encounter for screening for malignant neoplasm of colon (principal); Z86.010 Personal history of colon polyps; Z80.0 Family history of malignant neoplasm of digestive organs; D12.6 Benign neoplasm of colon, unspecified; Q43.8 Other specified congenital malformations of intestine; I10 Essential (primary) hypertension; E78.5 Hyperlipidemia, unspecified; E11.9 Type 2 diabetes mellitus without complications; M10.9 Gout, unspecified; M19.90 Unspecified osteoarthritis, unspecified site; G47.30 Sleep apnea, unspecified; N42.9 Disorder of prostate, unspecified; Z79.82 Long term (current) use of aspirin; Z79.84 Long term (current) use of oral hypoglycemic drugs; Z79.899 Other long term (current) drug therapy
CPT/HCPCS: 45385; 88305; J2370

== ENCOUNTER → 2021-01-04 | Outpatient (REF) | payer MEDICARE, OTHER ==
[~2021-01-04] MED LIST changes: -LIDOCAINE 2% 100MG/5ML SDV (FOR ANES.) As Ordered ONE; -NS 1,000 ML IV ONE; -propofoL 200 MG/20 ML VIAL As Ordered ONE
[2021-01-04 14:08] LABS: APPEARANCE, URINE HAZY (CLEAR); BACTERIA, URINE AUTO 1+ (NEGATIVE); BILIRUBIN, URINE AUTO NEGATIVE (NEGATIVE); BLOOD, URINE BLOOD 2+ (NEGATIVE); COLOR, URINE YELLOW (YELLOW); GLUCOSE, URINE (UA) AUTO NEGATIVE (NEGATIVE); KETONE, URINE AUTO NEGATIVE (NEGATIVE); LEUKOCYTE ESTERASE, URINE AUTO 3+ (NEGATIVE); MUCUS, URINE SMALL (NEGATIVE); NITRITE, URINE AUTO NEGATIVE (NEGATIVE); PROTEIN, URINE AUTO NEGATIVE (NEGATIVE); RBC, URINE AUTO 17 /HPF (0-3); SPECIFIC GRAVITY URINE AUTO 1.013 (1.002-1.035); SQUAMOUS EPITHELIAL CELL UR AU 0 /HPF (0-6); UROBILINOGEN, URINE AUTO 0.2 mg/dL (0.0-2.0); WBC, URINE AUTO 65 /HPF (0-3)
== END ==
LOC: M SMT 13:21
PROVIDERS: ATTEND Nurse Practitioner Family
DX: N39.0 Urinary tract infection, site not specified (principal)

== ENCOUNTER → 2021-04-10 | Outpatient (REF) | payer MEDICARE, OTHER ==
[~2021-04-10] MED LIST changes: +GABA-283 PO; -GABA-845 PO
[2021-04-11 12:15] LABS: AMORPHOUS SEDIMENT SMALL (NEGATIVE); APPEARANCE, URINE CLOUDY (CLEAR); BACTERIA, URINE AUTO 1+ (NEGATIVE); BILIRUBIN, URINE AUTO NEGATIVE (NEGATIVE); BLOOD, URINE BLOOD 1+ (NEGATIVE); GLUCOSE, URINE (UA) AUTO NEGATIVE (NEGATIVE); KETONE, URINE AUTO NEGATIVE (NEGATIVE); LEUKOCYTE ESTERASE, URINE AUTO 3+ (NEGATIVE); MUCUS, URINE SMALL (NEGATIVE); NITRITE, URINE AUTO NEGATIVE (NEGATIVE); PROTEIN, URINE AUTO NEGATIVE (NEGATIVE); RBC, URINE AUTO 2 /HPF (0-3); SPECIFIC GRAVITY URINE AUTO 1.016 (1.002-1.035); SQUAMOUS EPITHELIAL CELL UR AU 1 /HPF (0-6); WBC, URINE AUTO 85 /HPF (0-3)
[2021-04-11 12:23] LABS: COLOR, URINE YELLOW (YELLOW)
== END ==
LOC: M LABSMT 16:29
PROVIDERS: ATTEND Nurse Practitioner Family
DX: N39.0 Urinary tract infection, site not specified (principal)

== ENCOUNTER → 2021-04-24 | Outpatient (CLI) | payer MEDICARE, OTHER ==
[2021-04-24 18:50] LABS: HEMOGLOBIN A1c 6.9 %
[2021-04-24 19:07] LABS: ALBUMIN 4.2 GM/DL (3.2-5.2); ALT/SGPT 46 U/L (12-78); BILIRUBIN,TOTAL 0.5 MG/DL (0.2-1.0); BLOOD UREA NITROGEN 26 MG/DL (7-18); CALCIUM LEVEL 8.7 MG/DL (8.8-10.2); CARBON DIOXIDE LEVEL 29 MEQ/L (21-32); CHLORIDE LEVEL 106 MEQ/L (98-107); CHOLESTEROL LEVEL 145 MG/DL (<200); CHOLESTEROL RISK RATIO 4.677 (<5); CREATININE FOR GFR 1.24 MG/DL (0.70-1.30); GLOMERULAR FILTRATION RATE > 60.0 (>49); GLUCOSE, FASTING 135 MG/DL (70-100); HDL CHOLESTEROL 31 MG/DL (>40); LDL CHOLESTEROL 58 MG/DL (<100); NON-HDL-C 114 MG/DL; POTASSIUM SERUM 3.7 MEQ/L (3.5-5.1); SODIUM LEVEL 140 MEQ/L (136-145); TRIGLYCERIDES LEVEL 282 MG/DL (<150); URIC ACID 7.9 MG/DL (3.5-7.2)
[2021-04-24 19:28] LABS: TOTAL 25(OH) VITAMIN D 22.6 NG/ML (30.0-100.0)
== END ==
LOC: M PLALAB 14:29
PROVIDERS: ATTEND Nurse Practitioner Family
DX: I10 Essential (primary) hypertension (principal); E11.69 Type 2 diabetes mellitus with other specified complication; M10.9 Gout, unspecified; E55.9 Vitamin D deficiency, unspecified

== ENCOUNTER → 2021-09-20 | Outpatient (REF) | payer MEDICARE, OTHER ==
[~2021-09-20] MED LIST changes: +ALEV220T22 PO; +ALLO300T2 PO; +AMAR1TAB PO; +CHLO25TA PO; +D3 H10002 PO; +EQL50TAB2 PO; +FURO20TA2 PO; +LOSA100T45 PO; -LOSA100T50 PO; +NEUR300C PO; +OXYB-54 PO
[2021-09-20 19:00] LABS: APPEARANCE, URINE HAZY (CLEAR); BACTERIA, URINE AUTO NEGATIVE (NEGATIVE); BILIRUBIN, URINE AUTO NEGATIVE (NEGATIVE); BLOOD, URINE BLOOD NEGATIVE (NEGATIVE); COLOR, URINE YELLOW (YELLOW); GLUCOSE, URINE (UA) AUTO NEGATIVE (NEGATIVE); KETONE, URINE AUTO NEGATIVE (NEGATIVE); LEUKOCYTE ESTERASE, URINE AUTO NEGATIVE (NEGATIVE); MUCUS, URINE SMALL (NEGATIVE); NITRITE, URINE AUTO NEGATIVE (NEGATIVE); PROTEIN, URINE AUTO NEGATIVE (NEGATIVE); RBC, URINE AUTO 0 /HPF (0-3); SPECIFIC GRAVITY URINE AUTO 1.011 (1.002-1.035); SQUAMOUS EPITHELIAL CELL UR AU 1 /HPF (0-6); UROBILINOGEN, URINE AUTO 0.2 mg/dL (0.0-2.0); WBC, URINE AUTO 0 /HPF (0-3)
== END ==
LOC: M SMT 17:01
PROVIDERS: ATTEND Nurse Practitioner Women's Health
DX: N39.0 Urinary tract infection, site not specified (principal)
CPT/HCPCS: 51798; 81001; 87086; G0463

== ENCOUNTER → 2021-09-25 | Outpatient (CLI) | payer MEDICARE, OTHER ==
[~2021-09-25] MED LIST changes: -ALEV220T22 PO; -ALLO300T2 PO; -AMAR1TAB PO; -CHLO25TA PO; -D3 H10002 PO; -EQL50TAB2 PO; -FURO20TA2 PO; -LOSA100T45 PO; +LOSA100T50 PO; -NEUR300C PO; -OXYB-54 PO
--- NOTE | 2021-09-25 16:57 | REP ---
INDICATION: HYDROCELE COMPARISON: 07/14/2020 TECHNIQUE: Jimenez scale and color Doppler evaluation using linear and curved array transducer with color Doppler evaluation. FINDINGS: Large simple bilateral hydroceles again noted but increased in size from prior examination. Bilateral testicles and epididymi are relatively normal/stable. There is no evidence for torsion or hyperemia to suggest infectious/inflammatory process. Right testicle measures 5.3 x 3.1 x 3.1 cm. Left testicle measures 5.0 x 2.5 x 3.9 cm and again includes a small 2 mm nonspecific echogenic focus likely calcification along with multiple epididymal cysts up to 3.8 mm.. IMPRESSION: Bilateral hydroceles appear increased in size when compared with prior examination. Chronic changes to the left testicle and epididymis stable. <Electronically signed by Jose Jay > 09/25/21 0941
== END ==
LOC: M RAD 16:12
PROVIDERS: ATTEND Nurse Practitioner Women's Health
DX: N43.3 Hydrocele, unspecified (principal); N50.3 Cyst of epididymis; N50.89 Other specified disorders of the male genital organs

== ENCOUNTER → 2021-10-09 | Outpatient (CLI) | payer MEDICARE, OTHER ==
[~2021-10-09] MED LIST changes: +ALEV220T22 PO; +ALLO300T2 PO; +AMAR1TAB PO; +CHLO25TA PO; +D3 H10002 PO; +EQL50TAB2 PO; +FURO20TA2 PO; +NEUR300C PO; +OXYB-54 PO
--- NOTE | 2021-10-09 15:30 | REP ---
INDICATION: PRE OP, HYDROCELE. COMPARISON: 11/20/2018 the latest prior TECHNIQUE: PA and lateral FINDINGS: The superior mediastinal structures are midline. The cardiac silhouette is unremarkable in size, shape, and position. The diaphragmatic surfaces of the lungs are regular, and the costophrenic angles are clear. The pulmonary krause are clear. The imaged osseous structures are intact. IMPRESSION: There is no acute cardiopulmonary disease. <Electronically signed by Lance Caro > 10/09/21 0412
== END ==
LOC: M CLY 14:36
PROVIDERS: ATTEND Nurse Practitioner Women's Health
DX: Z01.818 Encounter for other preprocedural examination (principal); N43.3 Hydrocele, unspecified

== ENCOUNTER → 2021-10-10 | Outpatient (REF) | payer MEDICARE, OTHER ==
[2021-10-10 11:28] LABS: HEMATOCRIT 42.2 % (42.0-52.0); HEMOGLOBIN 13.7 g/dl (13.5-17.5); MEAN CORPUSCULAR HEMOGLOBIN 30.9 pg (27.0-33.0); MEAN CORPUSCULAR HGB CONC 32.5 g/dl (32.0-36.5); PLATELET COUNT, AUTOMATED 194 10^3/uL (150-450); RED BLOOD COUNT 4.44 10^6/uL (4.30-6.10); WHITE BLOOD COUNT 6.7 10^3/uL (4.0-10.0)
[2021-10-10 11:39] LABS: INR 1.05; PROTHROMBIN TIME 14.1 SECONDS (12.7-14.5)
[2021-10-10 11:40] LABS: PARTIAL THROMBOPLASTIN TIME 31.9 SECONDS (25.9-37.0)
[2021-10-10 12:03] LABS: BLOOD UREA NITROGEN 28 MG/DL (7-18); CALCIUM LEVEL 8.9 MG/DL (8.8-10.2); CARBON DIOXIDE LEVEL 28 MEQ/L (21-32); CHLORIDE LEVEL 101 MEQ/L (98-107); GLOMERULAR FILTRATION RATE > 60.0 (>49); GLUCOSE, FASTING 209 MG/DL (70-100); POTASSIUM SERUM 3.7 MEQ/L (3.5-5.1); SODIUM LEVEL 138 MEQ/L (136-145)
== END ==
LOC: M SFHCCLAY 08:31
PROVIDERS: ATTEND Nurse Practitioner Women's Health
DX: Z01.818 Encounter for other preprocedural examination (principal); N43.3 Hydrocele, unspecified; Z79.01 Long term (current) use of anticoagulants

== ENCOUNTER → 2021-10-12 | Outpatient (CLI) | payer MEDICARE, OTHER ==
[~2021-10-12] MED LIST changes: +LOSA100T45 PO; -LOSA100T50 PO
[2021-10-12 13:30] LABS: HEMOGLOBIN A1c 6.8 %
== END ==
LOC: M PLALAB 11:04
PROVIDERS: ATTEND Nurse Practitioner Family
DX: E11.69 Type 2 diabetes mellitus with other specified complication (principal)

== ENCOUNTER → 2021-10-12 | Outpatient (CLI) | payer MEDICARE, OTHER | LOC: M LABSMTC 10:48 | PROVIDERS: ATTEND Anesthesiology | DX: Z01.812 Encounter for preprocedural laboratory examination (principal); Z20.822 Contact with and (suspected) exposure to COVID-19; E11.69 Type 2 diabetes mellitus with other specified complication | CPT/HCPCS: 36415; 83036; U0003 ==

== ENCOUNTER 2021-10-17 11:07 | Day surgery (SDC) | payer MEDICARE, OTHER ==
[~2021-10-17] VITALS: Ht 188 cm; Wt 135.1 kg
[~2021-10-17 11:07] MED LIST changes: +LR 1,000 ML IV ONE; +ceFAZolin SOD 1 GM in D5W MINI-BAG PLUS 50 ML IV ONE; +ceFAZolin SOD 2 GM in IV 1 EA IV ONE
[2021-10-17] MEDS ORDERED: LIDOCAINE 2% 100MG/5ML SDV (FOR ANES.) As Ordered ONE (11:37)
[2021-10-17] MEDS ORDERED: fentaNYL 100 MCG/2 ML INJECTION (J3010) As Ordered ONE (11:38)
[2021-10-17] MEDS ORDERED: propofoL 200 MG/20 ML VIAL As Ordered ONE (11:38)
[2021-10-17] MEDS ORDERED: LIDOCAINE 1% SDV 30ML VIAL As Ordered ONE (11:39)
[2021-10-17] MEDS ORDERED: BACITRACIN OINTMENT 30GM TUBE As Ordered ONE (11:39)
[2021-10-17] MEDS ORDERED: BUPIVACAINE HCL 0.25% 30ML VIAL As Ordered ONE (11:39)
[2021-10-17] MEDS ORDERED: MIDAZOLAM INJ 2MG/2ML VIAL (J2250 PER 1MG) As Ordered ONE (11:46)
[2021-10-17] MEDS ORDERED: ONDANSETRON 4MG/2ML VIAL As Ordered ONE (12:50)
[2021-10-17] MEDS ORDERED: METOCLOPRAMIDE INJ 10MG/2ML VIAL (J2765 PER 1) As Ordered ONE (14:01)
[2021-10-17] MEDS ORDERED: KETAMINE HCL 200 MG/20 ML VIAL As Ordered ONE (14:09)
[2021-10-17] MEDS ORDERED: PERC5TAB12 PO (14:51)
[2021-10-17] MEDS ORDERED: LR 1,000 ML IV SCH (15:00)
[2021-10-17] MEDS ORDERED: METOCLOPRAMIDE INJ 10MG/2ML VIAL (J2765 PER 1) IV PRN (15:00)
[2021-10-17] MEDS ORDERED: oxyCODONE 5MG TAB PO PRN (15:00)
[2021-10-17] MEDS ORDERED: PERCOCET 5MG/325MG TAB PO PRN (15:00)
[2021-10-17] MEDS ORDERED: ONDANSETRON 4MG/2ML VIAL IV PRN (15:00)
[2021-10-17] MEDS ORDERED: fentaNYL 100 MCG/2 ML INJECTION (J3010) IV PRN (15:00)
[2021-10-17 18:40] VITALS: BP 132/54
== END 2021-10-17 19:00 | disposition home or self-care (01) ==
LOC: M SDC 11:07
PROVIDERS: ATTEND Urology
DX: N43.3 Hydrocele, unspecified (principal); I10 Essential (primary) hypertension; E78.5 Hyperlipidemia, unspecified; M10.9 Gout, unspecified; G47.33 Obstructive sleep apnea (adult) (pediatric); Z79.84 Long term (current) use of oral hypoglycemic drugs; Z79.82 Long term (current) use of aspirin; Z79.899 Other long term (current) drug therapy
CPT/HCPCS: 55041; 88302; J0690; J2250; J2405; J2765; J3010

== ENCOUNTER → 2021-11-15 | Outpatient (CLI) | payer MEDICARE, OTHER ==
[~2021-11-15] MED LIST changes: -LR 1,000 ML IV ONE; -ceFAZolin SOD 1 GM in D5W MINI-BAG PLUS 50 ML IV ONE; -ceFAZolin SOD 2 GM in IV 1 EA IV ONE
== END ==
LOC: M RAD 14:08
PROVIDERS: ATTEND Urology
DX: K40.90 Unilateral inguinal hernia, without obstruction or gangrene, not specified as recurrent (principal)

== ENCOUNTER → 2021-11-20 | Outpatient (REF) | payer MEDICARE, OTHER ==
[~2021-11-20] MED LIST changes: -D31000TA2 PO; +VITA100093 PO
== END ==
LOC: M LAB REF 19:08
PROVIDERS: ATTEND Nurse Practitioner Family
DX: L57.0 Actinic keratosis (principal)
CPT/HCPCS: 11102; 88305; G0463

== ENCOUNTER → 2021-12-31 | Outpatient (CLI) | payer MEDICARE, OTHER ==
[~2021-12-31] MED LIST changes: +COLA100C5 PO; +FLAX1CAP5 PO; +GABA-282 PO
== END ==
LOC: M LABSMTC 10:34
PROVIDERS: ATTEND Anesthesiology
DX: Z11.52 Encounter for screening for COVID-19 (principal); Z20.822 Contact with and (suspected) exposure to COVID-19

== ENCOUNTER 2022-01-04 06:06 | Day surgery (SDC) | payer MEDICARE, OTHER ==
[~2022-01-04] VITALS: Ht 188 cm; Wt 124.7 kg
[~2022-01-04 06:06] MED LIST changes: +LIDOCAINE 1% MDV 20ML VIAL SQ PRN; +LR 1,000 ML IV ONE; +ceFAZolin SOD 2 GM in IV 1 EA IV ONE
[2022-01-04] MEDS ORDERED: LIDOCAINE W/EPINEPHRINE 1% 20ML VIAL As Ordered ONE (07:11)
[2022-01-04] MEDS ORDERED: ACETAMINOPHEN 1000MG 100ML IV BTL (OFIRMEV) (J0131 PER 10MG) As Ordered ONE (08:04)
[2022-01-04] MEDS ORDERED: METOCLOPRAMIDE INJ 10MG/2ML VIAL (J2765 PER 1) As Ordered ONE (08:04)
[2022-01-04] MEDS ORDERED: ONDANSETRON 4MG/2ML VIAL As Ordered ONE (08:04)
[2022-01-04] MEDS ORDERED: KETOROLAC 60MG 2ML VIAL As Ordered ONE (08:04)
[2022-01-04] MEDS ORDERED: propofoL 200 MG/20 ML VIAL As Ordered ONE (08:04)
[2022-01-04] MEDS ORDERED: SUGAMMADEX SODIUM 500 MG/5 ML VIAL (BRIDION) As Ordered ONE (08:04)
[2022-01-04] MEDS ORDERED: ePHEDrine SULFATE 25 MG/5 ML(5MG/ML) SYRINGE As Ordered ONE ×2 (08:04→11:04)
[2022-01-04] MEDS ORDERED: fentaNYL 250 MCG/5 ML INJECTION As Ordered ONE (08:04)
[2022-01-04] MEDS ORDERED: LIDOCAINE 2% 100MG/5ML SDV (FOR ANES.) As Ordered ONE (08:04)
[2022-01-04] MEDS ORDERED: ROCURONIUM BROMIDE 50 MG/5 ML VIAL As Ordered ONE ×2 (08:04→09:46)
[2022-01-04] MEDS ORDERED: MIDAZOLAM INJ 2MG/2ML VIAL (J2250 PER 1MG) As Ordered ONE (08:04)
[2022-01-04] MEDS ORDERED: dexameTHASONE 4 MG/ML 1ML VIAL (J1100 PER 1MG) As Ordered ONE (08:04)
[2022-01-04] MEDS ORDERED: SEVOFLURANE INHAL SOLN 250 ML BTL As Ordered ONE (08:06)
[2022-01-04] MEDS ORDERED: DESFLURANE 240 ML INHALANT As Ordered ONE (08:06)
[2022-01-04] MEDS ORDERED: HYDROmorphone HCL 2MG/ML 1ML VIAL As Ordered ONE (10:24)
[2022-01-04] MEDS ORDERED: ONDANSETRON 4MG/2ML VIAL IV PRN (12:05)
[2022-01-04] MEDS ORDERED: oxyCODONE 5MG TAB PO PRN (12:05)
[2022-01-04] MEDS ORDERED: HYDROMORPHONE HCL 0.5 MG/ 0.5 ML SYRINGE (J1170 PER 1) IV PRN (12:05)
[2022-01-04] MEDS ORDERED: fentaNYL 100 MCG/2 ML INJECTION IV PRN (12:05)
[2022-01-04] MEDS ORDERED: LR 1,000 ML IV SCH (12:05)
[2022-01-04] MEDS ORDERED: PERCOCET 5MG/325MG TAB PO PRN ×2 (12:10)
[2022-01-04] MEDS ORDERED: NS 1,000 ML IV SCH (12:10)
[2022-01-04 15:45] VITALS: BP 124/56
== END 2022-01-04 16:10 | disposition home or self-care (01) ==
LOC: M SDC 06:06
PROVIDERS: ATTEND Surgery
DX: K40.20 Bilateral inguinal hernia, without obstruction or gangrene, not specified as recurrent (principal); I10 Essential (primary) hypertension; E11.40 Type 2 diabetes mellitus with diabetic neuropathy, unspecified; E78.5 Hyperlipidemia, unspecified; G47.33 Obstructive sleep apnea (adult) (pediatric); N40.0 Benign prostatic hyperplasia without lower urinary tract symptoms; Z79.82 Long term (current) use of aspirin; Z79.899 Other long term (current) drug therapy
CPT/HCPCS: 49650; C1781; J0131; J0690; J1100; J1170; J1885; J2250; J2405; J2765; J3010; S2900

== ENCOUNTER → 2022-04-02 | Outpatient (REF) | payer MEDICARE, OTHER ==
[~2022-04-02] MED LIST changes: -LIDOCAINE 1% MDV 20ML VIAL SQ PRN; -LR 1,000 ML IV ONE; -ceFAZolin SOD 2 GM in IV 1 EA IV ONE
[2022-04-02 16:02] LABS: APPEARANCE, URINE HAZY (CLEAR); BACTERIA, URINE AUTO 1+ (NEGATIVE); BILIRUBIN, URINE AUTO NEGATIVE (NEGATIVE); BLOOD, URINE BLOOD 1+ (NEGATIVE); COLOR, URINE YELLOW (YELLOW); GLUCOSE, URINE (UA) AUTO NEGATIVE (NEGATIVE); KETONE, URINE AUTO NEGATIVE (NEGATIVE); LEUKOCYTE ESTERASE, URINE AUTO 3+ (NEGATIVE); MUCUS, URINE SMALL (NEGATIVE); NITRITE, URINE AUTO NEGATIVE (NEGATIVE); PROTEIN, URINE AUTO NEGATIVE (NEGATIVE); RBC, URINE AUTO 3 /HPF (0-3); SPECIFIC GRAVITY URINE AUTO 1.004 (1.002-1.035); SQUAMOUS EPITHELIAL CELL UR AU 0 /HPF (0-6); UROBILINOGEN, URINE AUTO 0.2 mg/dL (0.0-2.0); WBC, URINE AUTO 17 /HPF (0-3)
== END ==
LOC: M SFHCCLAY 12:53
PROVIDERS: ATTEND Nurse Practitioner Women's Health
DX: R30.0 Dysuria (principal)

== ENCOUNTER → 2023-06-04 | Outpatient (REF) | payer MEDICARE, OTHER ==
[~2023-06-04] MED LIST changes: -GABA-283 PO; +GABA-284 PO; -LOSA100T45 PO; +LOSA100T46 PO
[2023-06-04 17:52] LABS: APPEARANCE, URINE HAZY (CLEAR); BACTERIA, URINE AUTO 1+ (NEGATIVE); BILIRUBIN, URINE AUTO NEGATIVE (NEGATIVE); BLOOD, URINE BLOOD 1+ (NEGATIVE); COLOR, URINE YELLOW (YELLOW); GLUCOSE, URINE (UA) AUTO NEGATIVE (NEGATIVE); KETONE, URINE AUTO NEGATIVE (NEGATIVE); LEUKOCYTE ESTERASE, URINE AUTO 3+ (NEGATIVE); NITRITE, URINE AUTO POSITIVE (NEGATIVE); PROTEIN, URINE AUTO NEGATIVE (NEGATIVE); RBC, URINE AUTO 16 /HPF (0-3); SQUAMOUS EPITHELIAL CELL UR AU 1 /HPF (0-6); UROBILINOGEN, URINE AUTO 0.2 mg/dL (0.0-2.0); WBC, URINE AUTO 111 /HPF (0-3)
== END ==
LOC: M SMT 16:50
PROVIDERS: ATTEND Urology
DX: N39.0 Urinary tract infection, site not specified (principal)

== ENCOUNTER → 2023-09-03 | Outpatient (REF) | payer MEDICARE, OTHER ==
[2023-09-03 17:57] LABS: APPEARANCE, URINE HAZY (CLEAR); BACTERIA, URINE AUTO 1+ (NEGATIVE); BILIRUBIN, URINE AUTO NEGATIVE (NEGATIVE); BLOOD, URINE BLOOD NEGATIVE (NEGATIVE); COLOR, URINE YELLOW (YELLOW); GLUCOSE, URINE (UA) AUTO NEGATIVE (NEGATIVE); KETONE, URINE AUTO NEGATIVE (NEGATIVE); LEUKOCYTE ESTERASE, URINE AUTO 3+ (NEGATIVE); MUCUS, URINE SMALL (NEGATIVE); NITRITE, URINE AUTO POSITIVE (NEGATIVE); PROTEIN, URINE AUTO NEGATIVE (NEGATIVE); RBC, URINE AUTO 2 /HPF (0-3); SPECIFIC GRAVITY URINE AUTO 1.012 (1.002-1.035); SQUAMOUS EPITHELIAL CELL UR AU 6 /HPF (0-6); UROBILINOGEN, URINE AUTO 0.2 mg/dL (0.0-2.0); WBC, URINE AUTO 107 /HPF (0-3)
== END ==
LOC: M SFHCCLAY 10:09
PROVIDERS: ATTEND Nurse Practitioner Family
DX: R30.0 Dysuria (principal)

== ENCOUNTER → 2025-05-10 | Outpatient (CLI) | payer MEDICARE, OTHER ==
[~2025-05-10] MED LIST changes: -EQL50TAB2 PO; -FLOM0.4C39 PO; +GABA-1172 PO; -GABA-282 PO; +TAMS-18 PO; +VITA1TAB82 PO
[2025-05-10 15:26] LABS: ESTIMATED AVERAGE GLUCOSE 171.0 MG/DL (60-110)
== END ==
LOC: M PLALAB 13:25
PROVIDERS: ATTEND Nurse Practitioner Family
DX: E11.69 Type 2 diabetes mellitus with other specified complication (principal)

== ENCOUNTER → 2025-06-15 | Outpatient (REF) | payer MEDICARE, OTHER ==
[2025-06-15 13:59] LABS: APPEARANCE, URINE HAZY (CLEAR); BACTERIA, URINE AUTO NEGATIVE (NEGATIVE); BILIRUBIN, URINE AUTO NEGATIVE (NEGATIVE); BLOOD, URINE BLOOD NEGATIVE (NEGATIVE); GLUCOSE, URINE (UA) AUTO NEGATIVE (NEGATIVE); KETONE, URINE AUTO NEGATIVE (NEGATIVE); LEUKOCYTE ESTERASE, URINE AUTO NEGATIVE (NEGATIVE); MUCUS, URINE SMALL (NEGATIVE); NITRITE, URINE AUTO NEGATIVE (NEGATIVE); PROTEIN, URINE AUTO NEGATIVE (NEGATIVE); RBC, URINE AUTO 0 /HPF (0-3); SPECIFIC GRAVITY URINE AUTO 1.012 (1.002-1.035); SQUAMOUS EPITHELIAL CELL UR AU 2 /HPF (0-6); UROBILINOGEN, URINE AUTO 0.2 mg/dL (0.0-2.0); WBC, URINE AUTO 1 /HPF (0-3)
== END ==
LOC: M SMT 12:56
PROVIDERS: ATTEND Physician Assistant
DX: Z87.898 Personal history of other specified conditions (principal)

== ENCOUNTER → 2025-08-15 | Outpatient (REF) | payer MEDICARE, OTHER ==
[2025-08-15 18:45] LABS: APPEARANCE, URINE HAZY (CLEAR); BACTERIA, URINE AUTO 1+ (NEGATIVE); BILIRUBIN, URINE AUTO NEGATIVE (NEGATIVE); BLOOD, URINE BLOOD NEGATIVE (NEGATIVE); GLUCOSE, URINE (UA) AUTO NEGATIVE (NEGATIVE); KETONE, URINE AUTO NEGATIVE (NEGATIVE); LEUKOCYTE ESTERASE, URINE AUTO 2+ (NEGATIVE); NITRITE, URINE AUTO POSITIVE (NEGATIVE); PROTEIN, URINE AUTO NEGATIVE (NEGATIVE); RBC, URINE AUTO 0 /HPF (0-3); SPECIFIC GRAVITY URINE AUTO 1.006 (1.002-1.035); SQUAMOUS EPITHELIAL CELL UR AU 0 /HPF (0-6); UROBILINOGEN, URINE AUTO 0.2 mg/dL (0.0-2.0); WBC, URINE AUTO 37 /HPF (0-3)
== END ==
LOC: M LABSMT 13:37
PROVIDERS: ATTEND Physician Assistant
DX: R39.9 Unspecified symptoms and signs involving the genitourinary system (principal)

== ENCOUNTER 2025-09-13 10:25 | Day surgery (SDC) | payer MEDICARE, OTHER ==
[~2025-09-13] VITALS: Ht 188 cm; Wt 125.9 kg
[~2025-09-13 10:25] MED LIST changes: +FAMO1TAB11 PO; +GABA-1490 PO; +GLIM2TAB29 PO; +SEMA1PEN2 SC; +VIBE75TA PO
[2025-09-13 12:15] VITALS: TEMP 97.6
[2025-09-13 12:32] VITALS: BP 120/78; O2SAT 97
== END 2025-09-13 12:38 | disposition home or self-care (01) ==
LOC: M OPP 10:25
PROVIDERS: ATTEND Surgery
DX: D12.6 Benign neoplasm of colon, unspecified (principal); Z86.0100 Personal history of colon polyps, unspecified; Z80.0 Family history of malignant neoplasm of digestive organs; G47.30 Sleep apnea, unspecified; Z79.82 Long term (current) use of aspirin; Z79.51 Long term (current) use of inhaled steroids; Z79.85 Long-term (current) use of injectable non-insulin antidiabetic drugs; Z79.899 Other long term (current) drug therapy